=== PATIENT | female | born 1990 | race Caucasian/White ===

== ENCOUNTER 2018-08-01 19:54 | Emergency (ER) | payer SELFPAY ==
[~2018-08-01] VITALS: Ht 170.2 cm; Wt 61.2 kg
[2018-08-01 20:52] LABS: *BILIRUBIN,URIN 2+ (NEGATIVE); *BLOOD, URINE NEGATIVE (NEGATIVE); *CLARITY,URINE CLOUDY (CLEAR); *KETONES,URINE 1+ (NEGATIVE); *PROTEIN,URINE 1+ (NEGATIVE); LEUKOCYTE ESTERASE ,URINE 1+ (NEGATIVE); NITRITE, URINE NEGATIVE (NEGATIVE); UGLUCOSE NEGATIVE (NEGATIVE)
[2018-08-01 20:53] LABS: *URINE HCG, QUAL NEGATIVE (NEGATIVE)
[2018-08-01 20:55] LABS: *COLOR,URINE AMBER (YELLOW)
[2018-08-01 20:58] LABS: BACTERIA,URINE MODERATE /HPF (NONE SEEN); MUCUS,URINE MANY /LPF (0-FEW); RBC,URINE 0-3 /HPF (0-3); SQUAMOUS EPITHELIAL CELL,UR MANY /HPF (NONE SEEN); WBC,URINE 20-50 /HPF (0-3)
--- NOTE | 2018-08-01 21:30 | NUR ---
Pt sitting up in bed, in no acute distress. No N/V/D noted at this time.
--- NOTE | 2018-08-01 21:50 | NUR ---
Dr. Browne at bedside for MSE
--- NOTE | 2018-08-01 21:55 | NUR ---
Pt in bathroom at this time and changing. Patient would like to have EKG and labs drawn after she changes.
[2018-08-01] MEDS ORDERED: CEFTRIAXONE 1 G in IV DEXTROSE 5% 50 ML IV ONE (22:00)
[2018-08-01] MEDS ORDERED: GENTAMICIN SULFATE INJ 80 MG in IV DEXTROSE 5% 100 ML IV ONE (22:00)
[2018-08-01] MEDS ORDERED: IV NORMAL SALINE 1000 ML BAG IV ONE (22:00)
[2018-08-01] MEDS ORDERED: GENTAMICIN SULFATE 80 MG/2 ML VIAL ONE (22:24)
[2018-08-01] MEDS ORDERED: CEFTRIAXONE 1 G VIAL ONE (22:24)
[2018-08-01 22:25] LABS: BASOPHILS % (AUTO) 0.3 % (0.0-2.0); EOSINOPHILS # (AUTO) 0.2 K/uL (0.0-0.7); EOSINOPHILS % (AUTO) 2.9 % (0.0-7.0); HEMATOCRIT 43.3 % (31.2-41.9); HEMOGLOBIN 14.7 g/dL (10.9-14.3); LYMPHOCYTES # (AUTO) 1.2 K/uL (20.0-40.0); LYMPHOCYTES % (AUTO) 19.9 % (20.5-51.5); MEAN CORPUSCULAR HEMOGLOBIN 29.1 uug (24.7-32.8); MEAN CORPUSCULAR HGB CONC 34 g/dL (32.3-35.6); MEAN CORPUSCULAR VOLUME 85.7 fL (75.5-95.3); MONOCYTES # (AUTO) 0.4 K/uL (2.0-10.0); NEUTROPHILS # (AUTO) 4.3 K/uL (1.8-8.9); NEUTROPHILS % (AUTO) 69.9 % (38.5-71.5); PLATELET COUNT (AUTO) 287 K/uL (179-408); RED BLOOD CELL COUNT(AUTO) 5.05 MIL/uL (3.63-4.92); WHITE BLOOD COUNT (AUTO) 6.2 K/uL (3.8-11.8)
[2018-08-01 22:44] LABS: BILIRUBIN,DIRECT 0.1 mg/dL (0.0-0.2); BILIRUBIN,TOTAL 0.4 mg/dL (0.2-1.0); TOTAL PROTEIN, SERUM 8.2 g/dL (6.4-8.2)
--- NOTE | 2018-08-02 00:29 | NUR ---
Dr. Browne at bedside for update.
--- NOTE | 2018-08-02 00:39 | NUR ---
IV removed. Catheter intact and site benign. Pressure and 4x4 gauze applied to site. No bleeding noted. Patient discharged to home in stable conditon. Written and verbal after care instructions given. Patient verbalizes understanding of instructions. All belongings taken. Patient ambulated out of ER with stable gait.
[2018-08-02 00:40] VITALS: BP 130/84
== END 2018-08-02 00:41 | disposition home or self-care (01) ==
LOC: ER 19:56
DX: N10 Acute pyelonephritis (principal); F17.200 Nicotine dependence, unspecified, uncomplicated; F12.10 Cannabis abuse, uncomplicated; R42 Dizziness and giddiness; R53.1 Weakness
CPT/HCPCS: 36415; 71045; 80048; 80076; 81001; 83605; 84484; 84703; 85025; 85730; 87040 ×2; 87086; 93005; 96365; 96367; 99284; J0696; J1580; J7060 ×2; 70030-TC; A4663; J7030

== ENCOUNTER 2018-10-01 14:40 | Emergency (ER) | payer MEDICAID ==
[~2018-10-01] VITALS: Ht 165.1 cm; Wt 61.2 kg
[2018-10-01] MEDS ORDERED: SWABABLE VALVE TRANSFER SET EA MC ONE (14:55)
[2018-10-01] MEDS ORDERED: IV NORMAL SALINE 250 ML IV ONE (14:55)
[2018-10-01] MEDS ORDERED: IOHEXOL 300MG/ML 100 ML INFUS..BTL ONE (14:55)
[2018-10-01] MEDS ORDERED: PIPERACILLIN/TAZOBACTAM/D5W 50 ML IV ONE (14:57)
[2018-10-01] MEDS ORDERED: VANCOMYCIN IV 200 ML ONE (14:57)
[2018-10-01] MEDS ORDERED: ACETAMINOPHEN ES 500 MG TABLET ONE (14:57)
[2018-10-01] MEDS ORDERED: diphenhydrAMINE 50 MG/1 ML VIAL ONE (14:57)
[2018-10-01] MEDS ORDERED: PIPERACILLIN SODIUM/TAZOBACTAM 3.375 G in IV DEXTROSE 5% 50 ML IV ONE (15:00)
[2018-10-01] MEDS ORDERED: ACETAMINOPHEN ES 500 MG TABLET PO ONE (15:00)
[2018-10-01] MEDS ORDERED: IV NORMAL SALINE 1000 ML BAG IV ONE (15:00)
[2018-10-01] MEDS ORDERED: VANCOMYCIN IV 1,000 MG in IV DEXTROSE 5% 250 ML IV ONE (15:00)
[2018-10-01] MEDS ORDERED: diphenhydrAMINE 50 MG/1 ML VIAL IV ONE (15:00)
[2018-10-01 15:08] LABS: BASOPHILS % (AUTO) 0.4 % (0.0-2.0); EOSINOPHILS # (AUTO) 0.2 K/uL (0.0-0.7); EOSINOPHILS % (AUTO) 2.5 % (0.0-7.0); HEMATOCRIT 36.5 % (31.2-41.9); HEMOGLOBIN 12.1 g/dL (10.9-14.3); LYMPHOCYTES # (AUTO) 1.5 K/uL (20.0-40.0); LYMPHOCYTES % (AUTO) 16.5 % (20.5-51.5); MEAN CORPUSCULAR HEMOGLOBIN 27.2 uug (24.7-32.8); MEAN CORPUSCULAR HGB CONC 33 g/dL (32.3-35.6); MEAN CORPUSCULAR VOLUME 82.3 fL (75.5-95.3); MONOCYTES # (AUTO) 0.5 K/uL (2.0-10.0); NEUTROPHILS % (AUTO) 75.6 % (38.5-71.5); PLATELET COUNT (AUTO) 287 K/uL (179-408); RED BLOOD CELL COUNT(AUTO) 4.44 MIL/uL (3.63-4.92); WHITE BLOOD COUNT (AUTO) 9.2 K/uL (3.8-11.8)
[2018-10-01 15:13] LABS: POTASSIUM 3.5 mmol/L (3.5-5.1)
[2018-10-01 15:19] LABS: BILIRUBIN,DIRECT 0.1 mg/dL (0.0-0.2); BILIRUBIN,TOTAL 0.3 mg/dL (0.2-1.0); TOTAL PROTEIN, SERUM 7.7 g/dL (6.4-8.2)
--- NOTE | 2018-10-01 15:33 | NUR ---
[employer] officers are here.
--- NOTE | 2018-10-01 17:24 | NUR ---
Patient is resting comfortably in bed with eyes closed. PATIENT IS PAIN FREE AT THIS TIME. Dinner tray is at bedside.
--- NOTE | 2018-10-01 17:59 | NUR ---
IV removed. Catheter intact and site benign. Pressure and 4x4 gauze applied to site. No bleeding noted. Patient was given written and verbal discharge instructions. Patient verbalizes understanding of instructions. Patient is ambulatory with steady gait. Patient was given list of available shelters in surrounding area. Patient says that she will arrange her own transport and custodial/housing. "I live in [facility] and that's where I want to be." per patient's verbalization.
== END 2018-10-01 18:04 | disposition home or self-care (01) ==
LOC: ER 14:40 → EDBD 14:40 → ER 18:04
DX: L02.01 Cutaneous abscess of face (principal); L03.213 Periorbital cellulitis; F17.200 Nicotine dependence, unspecified, uncomplicated; Z59.0 Homelessness
CPT/HCPCS: 36415; 70487; 80048; 80076; 83605 ×2; 84702; 85025; 85730; 87040 ×2; 87070; 87077; 96365; 96367; 96375; 99284; J1200; J2543; J3370; Q9967; A4663; A9150; J7030; J7040; J7050

== ENCOUNTER 2019-05-27 14:29 | Emergency (ER) | payer MEDICAID ==
[~2019-05-27] VITALS: Ht 170.2 cm; Wt 59.0 kg
[2019-05-27] MEDS ORDERED: IV NORMAL SALINE 1000 ML BAG IV ONE ×2 (14:45→16:15)
[2019-05-27] MEDS ORDERED: ONDANSETRON 4 MG/2 ML VIAL IV ONE (14:45)
[2019-05-27] MEDS ORDERED: PANTOPRAZOLE SODIUM 40 MG VIAL IV ONE (14:45)
--- NOTE | 2019-05-27 14:45 | NUR ---
Patient says she is homeless and wants [facility] placement. technicians and trades workers will be called per protocol.
[2019-05-27] MEDS ORDERED: PANTOPRAZOLE SODIUM 40 MG VIAL ONE (14:51)
[2019-05-27] MEDS ORDERED: ONDANSETRON 4 MG/2 ML VIAL ONE (14:51)
[2019-05-27 14:54] LABS: *BILIRUBIN,URIN 1+ (NEGATIVE); *KETONES,URINE NEGATIVE (NEGATIVE); LEUKOCYTE ESTERASE ,URINE NEGATIVE (NEGATIVE); NITRITE, URINE NEGATIVE (NEGATIVE); UGLUCOSE NEGATIVE (NEGATIVE)
[2019-05-27 15:06] LABS: BASOPHILS % (AUTO) 0.1 % (0.0-2.0); EOSINOPHILS # (AUTO) 0.1 K/uL (0.0-0.7); EOSINOPHILS % (AUTO) 1.4 % (0.0-7.0); HEMATOCRIT 38.2 % (31.2-41.9); HEMOGLOBIN 12.4 g/dL (10.9-14.3); LYMPHOCYTES # (AUTO) 1.2 K/uL (20.0-40.0); LYMPHOCYTES % (AUTO) 26.2 % (20.5-51.5); MEAN CORPUSCULAR HGB CONC 33 g/dL (32.3-35.6); MEAN CORPUSCULAR VOLUME 82.9 fL (75.5-95.3); MONOCYTES # (AUTO) 0.5 K/uL (2.0-10.0); MONOCYTES % (AUTO) 10.7 % (0.0-11.0); NEUTROPHILS # (AUTO) 2.7 K/uL (1.8-8.9); NEUTROPHILS % (AUTO) 61.6 % (38.5-71.5); PLATELET COUNT (AUTO) 182 K/uL (179-408); RED BLOOD CELL COUNT(AUTO) 4.61 MIL/uL (3.63-4.92); WHITE BLOOD COUNT (AUTO) 4.5 K/uL (3.8-11.8)
[2019-05-27 15:06] LABS: *BLOOD, URINE TRACE (NEGATIVE); *CLARITY,URINE SLIGHTLY HAZY (CLEAR); *COLOR,URINE DARK YELLOW (YELLOW)
[2019-05-27 15:08] LABS: BACTERIA,URINE FEW /HPF (NONE SEEN); MUCUS,URINE MODERATE /LPF (0-FEW); SQUAMOUS EPITHELIAL CELL,UR MODERATE /HPF (NONE SEEN)
[2019-05-27 15:12] LABS: *URINE HCG, QUAL NEGATIVE (NEGATIVE)
[2019-05-27 15:16] LABS: CREATININE 0.7 mg/dL (0.6-1.3); POTASSIUM 4.1 mmol/L (3.5-5.1)
[2019-05-27 15:22] LABS: BILIRUBIN,DIRECT 0.1 mg/dL (0.0-0.2); BILIRUBIN,TOTAL 0.4 mg/dL (0.2-1.0); TOTAL PROTEIN, SERUM 7.6 g/dL (6.4-8.2)
--- NOTE | 2019-05-27 15:22 | NUR ---
Roseann, our perinatal social worker is here.
--- NOTE | 2019-05-27 16:05 | NUR ---
3:20pm: SW arrived to the ED and met with JAMES Keane to discuss patient's case and reason for referral. SW then met with the patient, who was in her in assigned ED bed. Patient was receptive to meeting with this SW. Patient is a 28 year old female, alert, oriented, cooperative and engaged in a discussion with this SW. Patient transported herself by bus and came to the ED today for vomiting and nausea. Patient stated that she has been homeless for the past 2 years, living in [facility]. Patient stated she has [place]. 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 Patient reported history of drug treatment programs, but that she was not able to maintain her sobriety. Patient reported that her friends are nice and supply her with the drugs. Patient reported that she eats food when she is able to find it, and sometimes may steal food too. Patient wanted information on homeless shelters, and SW provided her information on the year round shelters that are currently available in [place]. Patient declined these shelters, however was still receptive to the information. SW provided patient with a homeless resource packet which included the following resources: a list of year-round homeless shelters, [facility], [address] [place] [address], ; [facility], [address] [address], ; [facility], [address] [place] [address], [phone]; and [facility], [address] [place] [address], ; the [facility] homeless directory which provides a list of places that individuals can go to throughout the week for hot meals, sack lunches, food pantries, and showers; a list of mental health clinics: [facility] [address] [place] [address], ; [facility] [place] [address] [facility] [place] [address], ; [facility] [place] [address], ; medical clinics: [facility] [address] [facility] [address], [place], ; [facility] [address], [address], [place] [address]; [facility] [address] [facility] [place] [address], ; and substance abuse programs: [facility] Substance Abuse Self-helpline ; [facility] ; [facility] ; [facility] ; [facility] ; [facility] [phone]; [facility] [phone], and [facility]recovery program [address] [place] [address], . SW also provided patient with information on locations of pharmacies. SW offered patient some clothing, but patient stated she had enough clothes, and extra clothes in her backpack. Patient was also provided with food. Patient stated that she will return to her previous living arrangement and be joining her friends once discharged from the ED, and would use the bus for transportation. All above reported to JAMES Keane. No further SS interventions needed at this time.
--- NOTE | 2019-05-27 16:28 | NUR ---
Toilet hat for specimen collection is at bedside. No vomiting or bowel movement seen since arrival to ER.Patient is resting comfortably on gurney with eyes closed. NAD, pending disposition.
--- NOTE | 2019-05-27 17:27 | NUR ---
Patient tolerated ice chips. Clear liquid tray is at bedside.
--- NOTE | 2019-05-27 17:41 | NUR ---
Patient ate 90% of her clear liquid tray and her own cup noodles. Extra hospital provided sandwich bag was given as well per patient's request.
--- NOTE | 2019-05-27 17:43 | NUR ---
No vomiting seen in ER. IV removed. Catheter intact and site benign. Pressure and 4x4 gauze applied to site. No bleeding noted. Patient given written and verbal discharge instructions. Patient verbalizes understanding of instructions. Patient is ambulatory with steady gait. Refuses offer of [facility] placement. Patient given list of available shelters in surrounding area. Patient signed the HOMELESS PATIENT WAIVER FORM.
== END 2019-05-27 17:43 | disposition home or self-care (01) ==
LOC: ER 14:31
DX: R11.10 Vomiting, unspecified (principal); R19.7 Diarrhea, unspecified; F17.200 Nicotine dependence, unspecified, uncomplicated; F11.10 Opioid abuse, uncomplicated; Z59.0 Homelessness
CPT/HCPCS: 36415; 80048; 80076; 81000; 81001; 84703; 85025; 86625; 87015; 87046; 87427; 87899; 89055; 96374; 96375; 99283; C9113; J2405; A4663; J7030

== ENCOUNTER 2019-09-16 15:59 | Emergency (ER) | payer MEDICAID, OTHER ==
[~2019-09-16] VITALS: Ht 160 cm; Wt 75.7 kg
--- NOTE | 2019-09-16 16:35 | NUR ---
PATIENT WAS MSE BY DR JETT IN ROOM 03A.
[2019-09-16 16:51] LABS: BASOPHILS % (AUTO) 0.5 % (0.0-2.0); EOSINOPHILS # (AUTO) 0.1 K/uL (0.0-0.7); EOSINOPHILS % (AUTO) 2.6 % (0.0-7.0); HEMATOCRIT 38.9 % (31.2-41.9); HEMOGLOBIN 13.2 g/dL (10.9-14.3); LYMPHOCYTES # (AUTO) 1.6 K/uL (20.0-40.0); LYMPHOCYTES % (AUTO) 32.4 % (20.5-51.5); MEAN CORPUSCULAR HEMOGLOBIN 28.7 uug (24.7-32.8); MEAN CORPUSCULAR HGB CONC 34 g/dL (32.3-35.6); MEAN CORPUSCULAR VOLUME 84.6 fL (75.5-95.3); MONOCYTES # (AUTO) 0.3 K/uL (2.0-10.0); MONOCYTES % (AUTO) 6.5 % (0.0-11.0); NEUTROPHILS # (AUTO) 2.9 K/uL (1.8-8.9); PLATELET COUNT (AUTO) 200 K/uL (179-408); RED BLOOD CELL COUNT(AUTO) 4.59 MIL/uL (3.63-4.92)
[2019-09-16 16:57] LABS: CREATININE 0.8 mg/dL (0.6-1.3); POTASSIUM 3.9 mmol/L (3.5-5.1)
[2019-09-16 17:59] VITALS: BP 135/74
--- NOTE | 2019-09-16 17:59 | NUR ---
Patient given written and verbal discharge instructions. Patient verbalizes understanding of instructions. Patient is ambulatory with steady gait. Refuses offer of jail placement. Patient given list of available shelters in surrounding area. Patient was picked up by her mother will stay with her.
--- NOTE | 2019-09-16 17:59 | NUR ---
Patient discharged to home in stable conditon. Written and verbal after care instructions given. Patient verbalizes understanding of instructions.
== END 2019-09-16 18:00 | disposition home or self-care (01) ==
LOC: ER 16:01
DX: R60.0 Localized edema (principal); F17.200 Nicotine dependence, unspecified, uncomplicated; J06.9 Acute upper respiratory infection, unspecified; Z59.0 Homelessness
CPT/HCPCS: 36415; 71045; 85025; A4663